=== PATIENT | female | born 1995 | race Caucasian/White ===

== ENCOUNTER 2024-08-11 01:21 | Day surgery (SDC) | payer OTHER, SELFPAY ==
[2024-08-04 13:01] VITALS: BMI 22.1
--- OUTSIDE RECORDS SUMMARY | 2024-08-11 01:24 | XMS_ITS | Continuity of Care Document ---
Author Organization [facility] Address [address] [place] [address] Phone Care Team Providers Care Forensic Accountant Name Role Phone Jose R [place], Amauri Unavailable Unavailable Allergies, Adverse Reactions, Alerts Substance Reaction Status Criticality No Known Allergies Active No Inform ation Medications Medication Instructions Dosage Effective Dates (start - stop) Status Comments Lexapro 10 mg tablet take 1 tablet (10MG ) by oral route every day 10 MG - Active Protonix 40 mg tablet,delayed release take 1 tablet (40MG) by oral route every day 40 MG - Active Procedures Procedure Date OFFICE/OUTPATIENT VISIT, EST PREV VISIT, EST, AGE 18-39 OFFICE/OUTPATIENT VISIT, EST OFFICE/OUTPATIENT VISIT, EST OFFICE/OUTPATIENT VISIT, EST OFFICE/OUTPATIENT VISIT, EST Advance Directives Directive Yes / No Effective Date File Name No Information Encounters Encounter Description Practice Location Reason(s) For Visit Diagnoses Date Provider Providers Copied on Encounter OFFICE/OUTPA TIENT VISIT, EST [facility], [address] [place], [id number], [place] tel:[phone] [facility] depression (chief complaint) Major depressive affective disorder, single episode, mild degreeGeneralized anxiety disorder 0201 3 Jose R Baugh. [address] [facility] [place], [address] , [place]. tel:[phone] Referring Provider: Amauri Odell, [address] [facility] [place], [place], [address]. tel:[phone] PREV VISIT, EST, AGE 18-39 [facility], [address], [place], [place], [address], [place] tel:[phone] [facility] Physical (chief complaint) Routine Medical ExamRoutine Medical Exam 3 Jose R Baugh. [address], [place], [place], [address] , [place]. tel:[phone] Referring Provider: Mir Ocasio [address], [place], [place], [address]. tel:[phone] OFFICE/OUTPA TIENT VISIT, [facility], [address], [place], [place], [address], [place] tel:[phone] [facility] abdominal pain (chief complaint)S inus symptoms (chief complaint) Dietary surveillance and counselingAbdomina l PainSinusitis, AcuteGERD 3 Jose R Lester [address], [place], [place], [address] , [place]. tel:[phone] Referring Provider: Mir Ocasio [address], [place], [place], [address]. tel:[phone] OFFICE/OUTPA TIENT VISIT, EST [facility], [address], [place], [place], [address], [place] tel:[phone] [facility] abdominal pain (chief complaint) Abdominal PainLoss of weight 3 Jose R Lester [address], [place], [place], [address] , [place]. tel:[phone] Referring Provider: Mir Ocasio [address], [place], [place], [address]. tel:[phone] OFFICE/OUTPA TIENT VISIT, EST [facility], [address], [place], [place], [address], [place] tel:[phone] [facility] poor appetite (chief complaint) Abdominal PainAnorexiaAttent ion deficit disorder of childhood without mention of hyperactivity 2 Jose R Lester [address], [place], [place], [address] , [place]. tel:[phone] Referring Provider: Amauri Odell [address] [facility], [place], [place], [address]. tel:[phone] OFFICE/OUTPA TIENT VISIT, EST [facility], [address], [place], [place], [address], [place] tel:[phone] [facility] ADD (chief complaint)w eight loss (chief complaint)h ip pain (chief complaint) Dietary surveillance and counselingPain in joint involving lower legAttention deficit disorder of childhood without mention of hyperactivityLoss of weight 0201 2 Jose R Baugh. [address] [place] [place], [address] , . tel:[phone] Referring Provider: Amauri Odell [place], [id number]. tel:[phone] Family History Family Member Type Diagnosis Age At Onset Father Problem (finding) Alive and well Mother Problem (finding) Diabetes mellitus Payers Payer name Insurance type Covered green party ID Authoriza tion(s) No Information Social History Type Description Quantity Date Captured Comments Alcohol Use Details No Caffeine Use Details Unknown Tobacco Use Status No Information Smoking Status Current every day smoker 2012 Sex Female Vital Signs Date / Time: Height Weight BMI Pulse Rate Blood Pressure Temperature Respiratory Rate Body Surface Area Head Circumference BMI percentile Pulse Ox Inhaled Ox 2:08 PM 67.00 in 123.00 lbs 19.2 6 kg/m eter (2) 105 /min 110/70 mm[Hg] 98.6 F 16 /min Chief Complaint And Reason For Visit From encounter dated '07/12/2012 13:00'. depression (chief complaint) Plan Of Treatment Date Type Action Status Goal Tobacco cessation counseling completed Goal Tobacco cessation counseling completed Goal Tobacco cessation counseling completed Goal Tobacco cessation counseling completed Goal Tobacco cessation counseling completed Goal Tobacco cessation counseling completed Referral Ordered: NUC MED HIDA (HEPATOBILIARY) SCAN ordered Referral Ordered: Gastroentergy (related to Loss of weight) ordered Referral Ordered: Referral: Gastroentergy. ordered Referral Ordered: CT ABD & PELVIS W/O CONTRAST ordered Referral Ordered: UPPER GI W/ SMALL BOWEL SERIES ordered Referral Ordered: US EXAM, ABDOM, COMPLETE ordered Referral Ordered: Physical Therapy (related to Pain in joint involving lower leg) ordered Referral Referred To: Physical Therapy Ordered: Referral: Physical Therapy. Evaluate and treat. ordered Referral Ordered: HIP XRAY AP/LAT Bilateral ordered History Of Present Illness Encounter Date Complaint History Of Prese nt Illness No Information Instructions Date Instruction Additional Infor mation Increase caloric intake Related to Underweight, BMI less than 19 Dietary counseling Related to Un derweight, BMI less than 19 Decrease caloric intake Related to Dietary surveillance counseling Dietary counseling Related to Di etary surveillance counseling Increase caloric intake Related to Dietary surveillance counseling Dietary counseling Related to Di etary surveillance counseling Assessments Type Assessment Date No Information Mental Status Date Cognitive Assessment Orientation - Goddard ed to time, place, person, situation.
--- OUTSIDE RECORDS SUMMARY | 2024-08-11 01:24 | XMS_ITS | Continuity of Care Document ---
Author Organization [facility] Address [address] [facility] [address] [place] [address] Phone Care Team Providers Care Pattern Designer Name Role Phone De Guzman OD, Frank Unavailable Unavailable Advance Directives Directive Yes / No Effective Date File Name No Information Encounters Encounter Description Practice Location Reason(s) For Visit Diagnoses Date Provider Providers Copied on Encounter [facility], [address], [place], [place], [address], [place] tel:[phone] [facility] No Information 2-200 3 De Guzman OD Frank. [address], [place], [address], [place]. tel:[phone] Family History Family Member Type Diagnosis Age At Onset No Information Payers Payer name Insurance type Covered republican ID Authoriza tion(s) No Information Social History Type Description Quantity Date Captured Comments Sex Female Smoking Status No Information Chief Complaint And Reason For Visit No Information Reason For Referral Reason For Referral No Information History Of Present Illness Encounter Date Complaint History Of Prese nt Illness No Information Functional Status Date Functional Assessmen t No Information Instructions Date Instruction Additional Infor mation No Information Assessments Type Assessment Date No Information Patient Care Teams Name Effective Dates (start - stop) Status Members No Information
--- OUTSIDE RECORDS SUMMARY | 2024-08-11 01:24 | XMS_ITS | Clinical Summary ---
Author Organization [facility] [employer] Address [address] [place] [address] Care Team Providers Care Radon Inspector Name Role Phone Amauri Odell MD Primary Care Provider [phone] Source Comments [facility] [employer],non-owned Affiliates and Associated Physician Practices is amultiple site organization consisting of ambulatory clinics and hospital sitesin [place], [place], [place] and [place]. This disclosure is being madepursuant to the Care Everywhere program and may not contain all information available regarding this patient. Last updated 17.[facility] [employer] [facility] Allergies No known active allergies Medications * Be aware that medications may not be up to date on this document. Alwaysverify current medications with the patient. venlafaxine (EFFEXOR) 37.5 MG tablet Take 37.5 mg by mouth 3 times daily with meals Active traZODone (DESYREL) 100 MG tablet Take 100 mg by mouth at bedtime Active buPROPion SR 12hr (WELLBUTRIN SR) 200 MG tablet Take 200 mg by mouth 2 times daily Active lamoTRIgine (LAMICTAL) 200 MG tablet Take 200 mg by mouth 2 times daily Active Family History Medical History Relation Name Comments Hypertension Father Relation Name Status Comments Father Social History Tobacco Use Types Packs/Day Years Used Date Smoking Tobacco: Every Day Cigarettes Smokeless Tobacco: Never Comments:started when 12 yea rs of age Comments No Sex and Gender Information Value Date Recorded Sex Assigned at Not on file Legal Sex Female 2:48 PM CDT Gender Identity Not on file Sexual Orientation Not on file Last Filed Vital Signs Vital Sign Reading Time Taken Comments Blood Pressure 110/62 07/25/2017 5:05 PM CDT Pulse 101 07/25/2017 5:05 PM CDT Temperature 37 C (98.6 F) 07/25/2017 5:05 PM CDT Respiratory Rate 16 07/25/2017 5:05 PM CDT Oxygen Saturation 98% 07/25/2017 5:05 PM CDT Inhaled Oxygen Concentration - - Weight 59 kg (130 lb) 07/25/2017 5:05 PM CDT Height 172.7 cm (5' 8) 07/25/2017 5:05 PM CDT Body Mass Index 19.77 07/25/2017 5:05 PM CDT Plan of Treatment Health Maintenance Due Date Last Done Comments HIV SCREENING 2008 HEPATITIS C SCREENING 12/09/2011 DTAP/TDAP/TD VACCINES (1 - Tdap) 2012 HEPATITIS B VACCINE (1 of 3 - 19+ 3-dose series) 2012 COVID-19 VACCINE (1 - 2023-2 5 season) 2023 DEPRESSION SCREENING 03/05/2024 INFLUENZA VACCINE (Season Ended) 2024 ZOSTER VACCINE (1 of 2) 12/14/2043 HIB VACCINE Aged Out No longer eligi ble based on patient's age to complete this topic HPV VACCINE Aged Out No longer eligi ble based on patient's age to complete this topic MENINGOCOCCAL (Group B) VACC INE SHARED DECISION-MAKING Aged Out No longer eligibl e based on patient's age to complete this topic MENINGOCOCCAL GROUPS A/C/Y/W VACCINE Aged Out No longer eligible b ased on patient's age to complete this topic PNEUMOCOCCAL VACCINE Aged Out No long er eligible based on patient's age to complete this topic Insurance ANTH MEDICAID - OUT OF STATE Member Subscriber Plan / Payer (Ef fective for All Dates) Name:Benito Gonzalez Relation to Subscriber:Self Name:BENITO GONZALEZ Payer ID:Not on file Group ID:Not on file Type:Medicaid Address: [address] [place] [id number] Care Teams Radon Inspector Relationship Specialty Start Date End Date Amauri Odell MD PCP - General 04/03/19
[2024-08-11 06:47] VITALS: BP 127/69; PULSE 73; RESP 18; TEMP 36.1; O2SAT 100; BMI 23.2
[2024-08-11 06:56] LABS: BEDSIDEPREGUCG Negative (Negative)
[2024-08-11] MEDS: LACTATED RINGERS 1,000 ML 150 ML IV CONT (06:58)
--- NOTE | 2024-08-11 07:13 | P.PNAN_ITS ---
Anes - Initial Pre Proc Eval Procedure: Operation Date: 08/11/24 07:45 Proposed Procedures p Esophagogastroduodenoscopy EGD - Jean-Claude Barajas MD Date/Time: 08/11/24 07:13 Surgeon: Jean-Claude Barajas MD Pre Op Diagnosis: Gastro-esophageal reflux disease without esophagit Patient Data Age: 28 Gender: F Height: 1.73 m Weight: 69.3 kg Last Vital Signs Temp 36.1 C L 08/11/24 06:47 Pulse 73 08/11/24 06:47 Resp 18 08/11/24 06:47 BP 127/69 08/11/24 06:47 Pulse Ox 100 08/11/24 06:47 O2 Del Method Room Air 08/11/24 06:47 Allergies Allergy/AdvReac Type Severity Reaction Status Date / Time pineapple Allergy Mild Hives Verified 08/11/24 06:44 Home Medications ?Medication ?Instructions ?Recorded ?Confirmed ?Type bupropion HCl 100 mg tablet,12 hr 300 mg PO DAILY 07/24/24 08/11/24 History sustained-release (Wellbutrin SR) lamotrigine 150 mg tablet 200 mg PO DAILY 07/24/24 08/11/24 History oxybutynin chloride 15 mg 15 mg PO DAILY 07/24/24 08/11/24 History tablet,extended release 24 hr topiramate 25 mg tablet (Topamax) 100 mg PO DAILY 07/24/24 08/11/24 History trazodone 100 mg tablet 200 mg PO QHS 07/24/24 08/11/24 History pantoprazole 40 mg tablet,delayed 40 mg PO QAM #90 tabs 08/07/24 08/11/24 Rx release Laboratory Tests 08/11/24 06:53 POC Urine HCG, Qual Negative (Negative) Patient hx anesthesia problems: none Family hx anesthesia problems: none Results Review: All pre-operative results and documents have been reviewed as part of the pre- operative evaluation. [facility] Past Medical History Medical History Irregular menstrual cycle Bipolar 1 disorder PDD (pervasive developmental disorder) Potter syndrome Surgical History Surgical History History of gynecologic surgery robotic assisted right ovarian cystectomy- corpus luteum cyst Entered by riana 07-09-2020, 08:10 Family History Family History Mother Hypertension Family history of diabetes mellitus in first degree relative Grandparent Family history of cataracts Cerebrovascular accident Family history of lung cancer Diabetes mellitus Social History Social History Smoking packs per day: 0.5 Smoking cigarettes per day: 10.0 Years smoked: 10 Smoking pack-years: 5.00 Smoking status: Current some day smoker Tobacco type: cigarettes and e-cigarettes/vaping Alcohol intake: current Alcohol use details: socially Substance use: current Substance use type: marijuana Lack of Transportation: No Lack of Food: Never True Current Housing: I Have Housing Concerned About Future Housing: No Difficulty Paying Gas/Electric Bills: No Difficulty Paying for Meds: No Currently Unemployed: No Education: Associate Degree Difficulty w/ Childcare or Family Care: No Living arrangements: with family Additional living arrangements comments: boyfriend / son Occupation/Education: occupation Gender identity (if verbalized by the patient): Female Sexual Orientation (if Verbalized by the Patient): Straight or Heterosexual Spiritual care concerns: No Anes - Eval Final PreProcedure Day of Procedure 08/11/24 07:13 Patient weight: normal Heart: regular rate and rhythm Lungs: clear to auscultation Airway: Mallampati scale class II Neurological: alert and oriented Last oral intake: >/= 8 hours ASA classification: III Emergent: no Anesthetic plan: proceed Anesthesia type and monitoring: general GIVS and standard monitoring Results Review: All pre-operative results and documents have been reviewed as part of the pre-operative evaluation. Informed Consent: The patient's anesthetic plan and its attendant risks and benefits were discussed with the patient/family/POA. Questions were solicited and answers provided to the satisfaction of the patient/family/POA.
--- NOTE | 2024-08-11 07:41 | WPDHPUPDATE1 ---
History and Physical Update Update Date/Time: 08/11/24 07:41 History and Physical has been reviewed, including an updated exam of the patient. There are NO changes in the patient's condition. Risks, benefits, and alternatives have been discussed and questions answered. Patient agrees to proceed with procedure.
--- NOTE | 2024-08-11 07:47 | S_PTH ---
PATIENT: Valerie Gonzalez LOC: [facility] Briseno#:[id number] AGE/SX: 28/F ROOM: RE08/11/[address]: Jean-Claude Barajas MD : 1995 BED: DIS: 08/11/2024 SPEC #: [id number] RECD: 08/11/24 10:26 STATUS: SIMON REVanessa #: [id number] JAELYN: 08/11/24 07:[address]: Jean-Claude Barajas DEPT: [facility] [place] Surgical RECD BY: Mar Siegel ENTERED: 08/11/24 10:26 SP TYPE: Surgical OTHR DR: Ngoc Real, ANP Tissues: A - Gastric Biopsy Procedures: Hematoxylin and Eosin Stain Gross and Microscopic Level 4
[2024-08-11 07:49] VITALS: BP 102/55; PULSE 71; RESP 20; O2SAT 98
[2024-08-11 07:59] VITALS: BP 113/66; PULSE 73; RESP 19; O2SAT 100
[2024-08-11 08:09] VITALS: BP 110/62; PULSE 76; RESP 20; O2SAT 97
== END 2024-08-11 08:15 | disposition home or self-care (01) ==
PROVIDERS: Anesthesiology; PCP Nurse Practitioner Family; Referring Provider Nurse Practitioner; Visit Provider Internal Medicine Gastroenterology
PROC: 0DJ08ZZ Inspection of Upper Intestinal Tract, Via Natural or Artificial Opening Endoscopic (ICD-10-PCS; CPT 43239; principal; 2024-08-11 07:45)
DX: K21.9 Gastro-esophageal reflux disease without esophagitis (principal); R11.0 Nausea; K31.84 Gastroparesis; F17.210 Nicotine dependence, cigarettes, uncomplicated; F17.290 Nicotine dependence, other tobacco product, uncomplicated; F12.90 Cannabis use, unspecified, uncomplicated
CPT/HCPCS: 43239; 88305; J2704; J7120

== ENCOUNTER 2024-08-20 08:48 | Outpatient (RCR) | payer OTHER, SELFPAY ==
[2024-08-20 09:50] VITALS: BMI 22.1
--- NOTE | 2024-08-20 10:28 | PCDIET ---
Outpatient nutrition referral completed. Thank you for this referral!
== END 2024-11-10 12:19 | disposition home or self-care (01) ==
LOC: ANHDMC 08:48
PROVIDERS: PCP Nurse Practitioner Family; Visit Provider Nurse Practitioner
DX: K21.9 Gastro-esophageal reflux disease without esophagitis (principal); Z71.89 Other specified counseling
CPT/HCPCS: 97802